=== PATIENT | female | born 1990 | race Caucasian/White ===

== ENCOUNTER 2021-01-12 09:00 | Observation (INO) | payer MEDICAID ==
[~2021-01-12] VITALS: Ht 157.5 cm; Wt 70.8 kg
== END 2021-01-12 11:52 | disposition home or self-care (01) ==
LOC: SPU 09:00
PROVIDERS: ADMIT Obstetrics & Gynecology; ATTEND Obstetrics & Gynecology
DX: O26.853 Spotting complicating pregnancy, third trimester (principal); O62.9 Abnormality of forces of labor, unspecified; Z3A.37 37 weeks gestation of pregnancy
CPT/HCPCS: 81002; G0378

== ENCOUNTER 2021-01-13 09:16 | Inpatient (IN) | payer MEDICAID, SELFPAY ==
[~2021-01-13] VITALS: Ht 157.5 cm; Wt 70.8 kg
[2021-01-13] MEDS ORDERED: NALBUPHINE HCL 10 MG/ML AMP IVP PRN (10:00)
[2021-01-13] MEDS ORDERED: LR 1,000 ML IV SCH (10:00)
[2021-01-13] MEDS ORDERED: OXYTOCIN/0.9 % SODIUM CHLORIDE 1,000 ML IV SCH (10:00)
[2021-01-13] MEDS ORDERED: LR 1,000 ML IV ONE (10:00)
[2021-01-13] MEDS ORDERED: TERBUTALINE SULFATE 1 MG/ML VIAL SUBCUT ONE (10:00)
[2021-01-13 10:23] LABS: BASOPHILS % (AUTO) 0.2 % (0.0-2.0); EOSINOPHILS # (AUTO) 0.1 K/uL (0.0-0.4); EOSINOPHILS % (AUTO) 0.6 % (0.0-4.0); HEMATOCRIT 32.9 % (36-48); HEMOGLOBIN 11.1 g/dL (12.0-16.0); LYMPHOCYTES # (AUTO) 1.7 K/uL (1.0-5.5); MEAN CORPUSCULAR HEMOGLOBIN 31 pg (27-31); MEAN CORPUSCULAR HGB CONC 34 % (32-36); MEAN CORPUSCULAR VOLUME 91 fL (79.0-98.0); MONOCYTES # (AUTO) 0.5 K/uL (0.0-1.0); MONOCYTES % (AUTO) 5.4 % (1.7-9.3); NEUTROPHILS # (AUTO) 6.5 K/uL (1.8-7.7); NEUTROPHILS % (AUTO) 74.8 % (40.0-70.0); PLATELET COUNT (AUTO) 230 K/uL (130-430); RED BLOOD CELL COUNT(AUTO) 3.64 MIL/uL (4.2-6.2); RED CELL DISTRIBUTION WIDTH 14.8 % (9.0-15.0); WHITE BLOOD COUNT (AUTO) 8.7 K/uL (4.8-10.8)
[2021-01-13] MEDS ORDERED: ROPIVACAINE HCL/PF 0.2% 200 ML ONE (11:18)
[2021-01-13] MEDS ORDERED: fentaNYL CITRATE/PF 100 MCG/2 ML AMP ONE (11:18)
[2021-01-13] MEDS ORDERED: NALOXONE HCL 0.4 MG/ML AMP (NARCAN) IVP PRN (12:45)
[2021-01-13] MEDS ORDERED: FENT2mCg/mL-ROPIVA0.2%/NS EPID 200 ML EP SCH (12:45)
[2021-01-13] MEDS ORDERED: ONDANSETRON HCL 4 MG/2 ML VIAL IVP PRN (12:45)
[2021-01-13] MEDS ORDERED: DIPHENHYDRAMINE INJ 50 MG/ML VIAL IVP PRN (12:45)
[2021-01-13] MEDS ORDERED: OXYTOCIN 10 UNIT/ML VIAL IM ONE (14:15)
[2021-01-13] MEDS ORDERED: HYDROcodone/ACETAMIN 5-325 MG TAB (NORCO/ VICODIN) PO PRN (15:15)
[2021-01-13] MEDS ORDERED: OXYCODONE/ACETAMINOPHEN 5-325 TABLET PO PRN (15:15)
[2021-01-13 17:50] VITALS: BP_SYST 120
[2021-01-13] MEDS ORDERED: FLU VACC QS2021-22(6MOS UP)/PF 0.5 ML/SYR SYRINGE I.M. PRN (18:00)
[2021-01-13] MEDS ORDERED: IBUPROFEN 600 MG TABLET ONE (18:33)
[2021-01-13] MEDS ORDERED: OXYTOCIN 10 UNIT/ML VIAL ONE (20:29)
[2021-01-13] MEDS: IBUPROFEN 600 MG TABLET PO SCH (23:47)
[2021-01-14] MEDS: IBUPROFEN 600 MG TABLET PO SCH ×3 (06:21→18:29)
[2021-01-14 06:51] LABS: HEMATOCRIT 30.2 % (36-48)
[2021-01-14] MEDS: OXYCODONE/ACETAMINOPHEN 5-325 TABLET PO PRN (11:46)
[2021-01-14] MEDS ORDERED: LIDOCAINE PF 1% 30ML(POUR BTL) INJ ONE (13:49)
[2021-01-14] MEDS ORDERED: PENICILLIN G BENZATHINE 1.2 MMU/2 ML SYR IM ONE (15:30)
[2021-01-14] MEDS ORDERED: DERMOPLAST SPRAY TP PRN (17:00)
[2021-01-14] MEDS ORDERED: WITCH HAZEL LEAF 1 MED.PAD MED.PAD TP PRN (17:00)
[2021-01-15] MEDS: IBUPROFEN 600 MG TABLET PO SCH ×3 (01:54→11:46)
[2021-01-15] MEDS ORDERED: DOCUSATE SODIUM 100 MG CAPSULE PO SCH (09:00)
[2021-01-15] MEDS ORDERED: DIPH-TET-PERTUS Vaccine 0.5 ML VIAL (ADACEL) I.M. ONE (10:00)
[2021-01-15] MEDS: OXYCODONE/ACETAMINOPHEN 5-325 TABLET PO PRN (12:39)
== END 2021-01-15 12:49 | disposition home or self-care (01) | DRG 560 ==
LOC: OBSVTOIN 09:16 → SPU 09:16
PROVIDERS: ADMIT Obstetrics & Gynecology; ATTEND Obstetrics & Gynecology
PROC: 10D07Z6 Extraction of Products of Conception, Vacuum, Via Natural or Artificial Opening (ICD-10-PCS; principal; 2021-01-13)
PROC: 3E0R3BZ Introduction of Anesthetic Agent into Spinal Canal, Percutaneous Approach (ICD-10-PCS; 2021-01-13)
PROC: 00HU33Z Insertion of Infusion Device into Spinal Canal, Percutaneous Approach (ICD-10-PCS; 2021-01-13)
DX: O99.52 Diseases of the respiratory system complicating childbirth (principal); Z37.0 Single live birth; O24.420 Gestational diabetes mellitus in childbirth, diet controlled; J45.909 Unspecified asthma, uncomplicated; Z20.822 Contact with and (suspected) exposure to COVID-19; Z3A.38 38 weeks gestation of pregnancy
CPT/HCPCS: 36415; 81002; 82962; 85018; 85025; 86592; 86886; 86900; 86901; 90715; 94760; J0561; J2001; J2590; J3010